=== PATIENT | female | born 1955 | race Caucasian/White ===

== ENCOUNTER 2017-09-20 15:19 | Emergency (ER) | payer BC ==
[2017-09-20 15:59] VITALS: BP 142/74
[2017-09-20] MEDS ORDERED: Albuterol/Ipratropium NEB.SOL* Albuterol 2.5 MG/Ipratropium 0.5 MG 3 ML INH ONE (16:46)
[2017-09-20] MEDS ORDERED: Ketorolac INJ* 60 MG/2 ML VIAL IM ONE (16:53)
--- NOTE | 2017-09-20 16:53 | UC ---
FLU HPI - HPI Summary HPI Summary: 62 female presents to with complaints of cough, fever/chills, ear pain, myalgias, headache and feeling SOB that began Monday night. Patient states her was diagnosed with the flu a few days ago. Has been taking ibuprofen without significant relief, last dose this morning around 7am. Has been drinking. Denies vomiting and nausea, chest pain and abdominal pain. No other complaints. No PMHx other than HTN. - History of Current Complaint Chief Complaint: UCRespiratory Stated Complaint: CHILLS,BILAT EAR PAIN Time Seen by Provider: 09/20/17 16:33 Hx Obtained From: Patient Onset/Duration: Sudden Onset, Lasting Days - 2, Still Present Severity Currently: Moderate Severity Initially: Moderate Pain Intensity: 5 Pain Scale Used: 0-10 Numeric Associated Signs & Symptoms: Positive: F/C, Myalgia, Cough, Sore Throat, Nasal Congestion, Headache - Allergy/Home Medications Allergies/Adverse Reactions: Allergies Allergy/AdvReac Type Severity Reaction Status Date / Time Latex Allergy Severe Rash Verified 09/20/17 15:51 CONTRAST DYE Allergy Unknown Uncoded 09/20/17 15:51 Reaction Details PMH/Surg Hx/FS Hx/Imm Hx Cardiovascular History: Hypertension - Surgical History Surgical History: Yes Surgery Procedure, Year, and Place: ovarian and breast cysts removed. Uterine Mass removed benign 14 at [facility] [place]. tonsils age 20. leg fracture reset age 20. 2 ectopic ruptures in . bilateral fractured ankles 2015 2013. exploratory lap and appe age 17 - Family History Known Family History: Positive: Unknown - Social History Alcohol Use: Occasionally Substance Use Type: None Smoking Status (MU): Never Smoked Tobacco - Immunization History Most Recent Influenza Vaccination: 2013 Most Recent Tetanus Shot: UTD Review of Systems Constitutional: Fever, Chills, Fatigue Eyes: Negative ENT: Sore Throat, Ear Ache, Nasal Discharge, Sinus Congestion Respiratory: Shortness Of Breath, Cough Cardiovascular: Negative Gastrointestinal: Negative Musculoskeletal: Myalgia Neurological: Headache All Other Systems Reviewed And Are Negative: Yes Physical Exam Triage Information Reviewed: Yes Appearance: No Pain Distress, Well-Nourished, Ill-Appearing Vital Signs: Initial Vital Signs Temp 99 F 09/20/17 15:52 Resp 24 09/20/17 15:52 BP 142/74 09/20/17 15:52 Pulse Ox 100 09/20/17 15:52 HR: Eyes: Positive: Conjunctiva Clear ENT: Positive: Hearing grossly normal, Pharyngeal erythema, Nasal congestion, TMs normal, Uvula midline. Negative: TM bulging, TM dull, Tonsillar swelling, Tonsillar exudate, Sinus tenderness Dental: Negative: Percussion Tenderness @, Cervical Lymphadenopathy Neck exam: Normal Neck: Positive: Supple, Nontender, No Lymphadenopathy Respiratory: Positive: Chest non-tender, Normal breath sounds, No respiratory distress, Rhonchi, Wheezing - diffuse. Negative: No accessory muscle use, Respiratory distress Cardiovascular: Positive: RRR, No Murmur, Pulses Normal Abdomen Description: Positive: Nontender, Soft Bowel Sounds: Positive: Present Musculoskeletal: Positive: Strength Intact Neurological: Positive: Alert Skin Exam: Normal Diagnostics - Radiology chest Xray Interpretation: No Acute Changes - NO ACTIVE DISEASE. Radiology Interpretation Completed By: Radiologist - and myself Re-Evaluation - Re-Evaluation First Eval Re-Evaluation Time: 17:30 Change: Improved - after duoneb and toradol. updated on chest xray results. Flu Course/Dx - Course Course Of Treatment: influenza obtained and positve for flu a. chest xray obtained due to patient having history of pneumonia, wheezing/rhonci on lung sounds. was negative. given duoneb and toradol. had relief. will send home with tamiflu due to 48 hours of onset symptoms. continue ibu/tylenol, ibu not until tomrrow due to toradol. normal vitals. aware of worsening signs and symptoms. no other concerns at this time. follow up pcp. fluids, rest. - Differential Dx/Diagnosis Differential Diagnosis/HQI/PQRI: Influenza, Pneumonia Provider Diagnoses: influenza A Discharge - Discharge Plan Condition: Stable Disposition: HOME Patient Education Materials: Influenza (ED) Referrals: Reza Obregon MD [Primary Care Provider] - Additional Instructions: Take prescribed medication as directed to help with shorten symptoms. Increase fluid intake and get plenty of rest. Any new or worsening symptoms please seek medical attention. Continue ibuprofen and tylneol to help with fever and body aches. Follow up with PCP. Continue use of inhaler as needed for SOB and wheezing.
--- NOTE | 2017-09-20 17:16 | RAD ---
INDICATION: Pneumonia COMPARISON: January 09, 2015 TECHNIQUE: PA and lateral dual-energy views were obtained. FINDINGS: Bones/Soft Tissues: There are no acute bony findings. Cardiomediastinal: The cardiomediastinal silhouette is normal. Lungs: There are no infiltrates. Pleura: There are no pleural effusions. Other: None IMPRESSION: NO ACTIVE DISEASE.
== END 2017-09-20 17:51 | disposition home or self-care (01) ==
LOC: UCCORT 15:19
DX: I10 Essential (primary) hypertension (principal); J09.X2 Influenza due to identified novel influenza A virus with other respiratory manifestations
CPT/HCPCS: 71020; 87502; 96372; 99212; A9270-GY; G0463; J1885

== ENCOUNTER 2020-09-03 08:04 | Observation (INO) ==
[~2020-09-03 08:04] MED LIST: Buffered Lidocaine 1% SYRIN 1 ml INTRADERM ONE; Dexamethasone IV 4 MG/ML VIAL 1 ml VIAL IV SLOW PU ONE; Lactated Ringers 1000 ml BAG 1,000 ML IV SCH
[2020-09-03] MEDS ORDERED: Dexamethasone IV 4 MG/ML VIAL 1 ml VIAL ONE (08:46)
[2020-09-03] MEDS ORDERED: ceFAZolin 2 GM PREMIX 2 GM/50 ML BAG ONE (08:46)
[2020-09-03] MEDS ORDERED: Midazolam 2 mg/2 ml VIAL 1 mg/ml 2 ml VIAL (2 mg) ONE ×3 (08:48→10:20)
[2020-09-03] MEDS ORDERED: fentaNYL 100 mcg/2 ml 50 MCG/ML VIAL ONE (08:48)
[2020-09-03] MEDS ORDERED: Rocuronium 50 mg VIAL 10 mg/ml 5 ml VIAL (50 mg) ONE (08:48)
[2020-09-03] MEDS ORDERED: Propofol 10 MG/ML 20 ML BTL ONE ×2 (08:49→11:01)
[2020-09-03] MEDS ORDERED: ROPIVACAINE 5 MG/ML 30 ML BTL (0.5%) ONE ×2 (09:38→10:54)
[2020-09-03] MEDS ORDERED: Bupivacaine 0.5% SDV PF 30ML VIAL ONE (09:58)
[2020-09-03] MEDS ORDERED: Naloxone 0.4 mg VIAL 0.4 mg/ml 1 ml VIAL IV PRN (10:37)
[2020-09-03] MEDS ORDERED: HYDROmorphone 1 MG/1 ML SYRINGE IV PRN (10:37)
[2020-09-03] MEDS ORDERED: fentaNYL 100 mcg/2 ml 50 MCG/ML VIAL IV PRN (10:37)
[2020-09-03] MEDS ORDERED: Ondansetron 4 mg VIAL 2 MG/ML 2 ml VIAL IV PRN (10:37)
[2020-09-03] MEDS ORDERED: diPHENhydraMINE IV 50 MG/ML 1 ml VIAL (BENADRYL) IV PRN (12:38)
[2020-09-03] MEDS ORDERED: Magnesium Hydroxide LIQ 30 ML UDC PO PRN (12:38)
[2020-09-03] MEDS ORDERED: diPHENhydraMINE 25 mg TAB PO PRN (12:38)
[2020-09-03] MEDS ORDERED: Lactulose 30 ml UDC PO PRN (12:38)
[2020-09-03] MEDS ORDERED: Metoclopramide 5 MG/ML VIAL (10 mg) IV PRN (12:57)
[2020-09-03] MEDS: Morphine 2 MG/ML SYRINGE IV PRN (17:02)
[2020-09-03] MEDS: ceFAZolin 1 GM ADVAN 1 GM in NS 0.9% 50 ML 50 ML IVPB SCH (18:17)
[2020-09-03] MEDS: Magnesium Hydroxide LIQ 30 ML UDC PO SCH (20:45)
[2020-09-04] MEDS: Lactated Ringers 1000 ml BAG 1,000 ML IV SCH ×3 (00:35→14:08)
[2020-09-04] MEDS: ceFAZolin 1 GM ADVAN 1 GM in NS 0.9% 50 ML 50 ML IVPB SCH ×2 (02:19→10:04)
[2020-09-04] MEDS: Morphine 2 MG/ML SYRINGE IV PRN (04:40)
[2020-09-04 05:39] LABS: Hematocrit 29 % (35-47); Hemoglobin 10.2 g/dL (12.0-16.0); Mean Platelet Volume 6.8 fL (7.4-10.4); Platelet Count 159 10^3/uL (150-450)
[2020-09-04 06:34] LABS: Calcium 8.7 mg/dL (8.6-10.3)
[2020-09-04 06:39] LABS: BUN/Creatinine Ratio 21.4 (8-20); EGFR African American 101.9 (>60); EGFR Non-African American 84.2 (>60)
[2020-09-04] MEDS: Vitamin THERAPEUTIC TAB PO SCH (08:07)
[2020-09-04] MEDS: Magnesium Hydroxide LIQ 30 ML UDC PO SCH ×2 (08:08→21:36)
[2020-09-05 04:36] LABS: Hematocrit 26 % (35-47); Mean Platelet Volume 6.8 fL (7.4-10.4); Platelet Count 136 10^3/uL (150-450)
[2020-09-05] MEDS: Vitamin THERAPEUTIC TAB PO SCH (08:26)
[2020-09-05] MEDS: Magnesium Hydroxide LIQ 30 ML UDC PO SCH ×2 (08:26→21:23)
[2020-09-06 06:31] LABS: Hematocrit 25 % (35-47); Hemoglobin 8.4 g/dL (12.0-16.0); Mean Platelet Volume 6.8 fL (7.4-10.4); Platelet Count 137 10^3/uL (150-450)
[2020-09-06] MEDS: Magnesium Hydroxide LIQ 30 ML UDC PO SCH (08:48)
[2020-09-06] MEDS: Vitamin THERAPEUTIC TAB PO SCH (08:49)
[2020-09-06] MEDS ORDERED: Scopolamine PATCH Remove NOTE PATCH OFF ONE (09:00)
[2020-09-06 11:20] VITALS: BP 124/59
== END 2020-09-06 12:27 | disposition home or self-care (01) ==
LOC: SSU 08:04 → OR 08:04 → EDSTATUS 09:45
PROVIDERS: ADMIT Orthopaedic Surgery Adult Reconstructive Orthopaedic Surgery; ATTEND Orthopaedic Surgery Adult Reconstructive Orthopaedic Surgery